=== PATIENT | male | born 1955 | race Caucasian/White ===

== ENCOUNTER 2017-09-22 09:45 | Emergency (ER) | payer BC ==
[2017-09-22 09:54] VITALS: BP 138/97
--- NOTE | 2017-09-22 10:34 | UC ---
Complaint Male HPI - HPI Summary HPI Summary: 62 y/o male presents to the urgent care c/o a rash in his testicles started on 05/2017 that itches a lot. Pt states rash comes and goes , but has worsen in the past week. Pt denies pain, fever, urinary symptoms, Hx STD's, lower back pain, numbness or tingling, penile discharge. - History of Current Complaint Chief Complaint: UCSkin Stated Complaint: RASH Time Seen by Provider: 09/22/17 10:30 Hx Obtained From: Patient Onset/Duration: Gradual Onset, Still Present, Other - lasting months since 2016 Timing: Constant Severity Initially: Mild Severity Currently: Moderate Pain Intensity: 0 Pain Scale Used: 0-10 Numeric Location: Testicle - B/L testicles Aggravating Factor(s): Other - touch Alleviating Factor(s): Nothing Associated Signs And Symptoms: Positive: Negative. Negative: Back Pain, Fever, Penile Swelling, Penile Discharge - Risk Factors Testicular Torsion: Negative - Allergies/Home Medications Allergies/Adverse Reactions: Allergies Allergy/AdvReac Type Severity Reaction Status Date / Time Penicillins [PCN] Allergy Diarrhea Verified 09/22/17 09:54 PMH/Surg Hx/FS Hx/Imm Hx Previously Healthy: Yes Endocrine History: Dyslipidemia Cardiovascular History: Hypertension GI/ History: Gastroesophageal Reflux - Surgical History Surgical History: None - Family History Known Family History: Positive: Cardiac Disease, Hypertension - Social History Occupation: Employed Full-time Lives: With Family Alcohol Use: Weekly Substance Use Type: None Smoking Status (MU): Heavy Every Day Tobacco Smoker Amount Used/How Often: 2 PPD - Immunization History Most Recent Influenza Vaccination: 05/2017 Review of Systems Constitutional: Negative Skin: Other - B/L testiles with itchy red rash Eyes: Negative ENT: Negative Respiratory: Negative Cardiovascular: Negative Gastrointestinal: Negative Genitourinary: Negative Motor: Negative Neurovascular: Negative Musculoskeletal: Negative Neurological: Negative Psychological: Negative Is Patient Immunocompromised?: No All Other Systems Reviewed And Are Negative: Yes Physical Exam Triage Information Reviewed: Yes Vital Signs: Initial Vital Signs Temp 98.3 F 09/22/17 09:50 Pulse 83 09/22/17 09:50 Resp 16 09/22/17 09:50 BP 138/97 09/22/17 09:50 Pulse Ox 98 09/22/17 09:50 - Additional Comments VITAL SIGNS: Reviewed. GENERAL: Patient is a well developed and nourished male who is sitting comfortable in the examining table. Patient is not in any acute respiratory distress. HEAD AND FACE: No signs of trauma. No ecchymosis, hematomas or skull depressions. No sinus tenderness. EYES: PERRLA, EOMI x 2, No injected conjunctiva, clear watery eyes, no nystagmus. No photophobia. EARS: Hearing grossly intact. Ear canals and tympanic membranes are within normal limits. MOUTH: pharynx with no erythema, no exudates,no palatal petechiae. no B/L tonsillar enlargement Uvula in midline. NECK: Supple, trachea is midline, no lymphadenopathy, no JVD, no carotid bruit, no c-spine tenderness, neck with full ROM. CHEST: Symmetric, no tenderness at palpation LUNGS: Clear to auscultation bilaterally. No wheezing or crackles. CVS: Regular rate and rhythm, S1 and S2 present, no murmurs or gallops appreciated. ABDOMEN: Soft, non-tender. No signs of distention. No rebound no guarding, and no masses palpated. Bowel sounds are normal. BACK:no scoliosis or lesions, non tender to palaption, No B/L CVA tenderness EXTREMITIES: FROM in all major joints, no edema, no cyanosis or clubbing. NEURO: Alert and oriented x 3. No acute neurological deficits. Speech is normal and follows commands. SKIN: Dry and warm. Genital:I was assisted by Nurse Frantz. Positive B/L testicles with erythematous patch with satellite lesions, non tender to palpation, signs of scoriation. About 2cm x3 cm in size. Penis WNl no penile discharge or swelling observed, Complaint Male Course/Dx - Course Course Of Treatment: 62 y/o male presents to the urgent care c/o a rash in his testicles started on 05/2017 that itches a lot. Pt states rash comes and goes , but has worsen in the past week. Pt denies pain, fever, urinary symptoms, Hx STD 's, lower back pain, numbness or tingling, penile discharge. Hx obtained. Pt with Positive B/L testicles with erythematous patch with satellite lesions, non tender to palpation, signs of scoriation. About 2cm x3 cm in size. Penis WNL, no penile discharge or swelling observed on examiantion. Most likely Candidal intertrigo. Pt Rx Ketokonazole topical cream and Bendryl PO to alleviate Pruritus. Pt advised to decrease Atorvastatin to 1/2 tab for 1 week since Ketoconazole can interfere with its excretion. Pt understood and agreed. Pt with elevated BP, advised to decrease salt in diet, monitor BP and F/U with his PCP for further management. D/C instruction explained .All questions answers at Pt's satisfaction. Pt understood and agreed with plan of care. - Differential Dx/Diagnosis Differential Diagnosis/HQI/PQRI: Phimosis, Priaprism, Paraphimosis, Prostatitis , Urinary Tract Infection, Other - STD's, mile intertrigo Provider Diagnoses: 1- Candidal intertrigo. 2-Pruritus. 3- Uncontrolled HTN Discharge - Discharge Plan Condition: Stable Disposition: HOME Prescriptions: diPHENhydraMINE PO* [Benadryl PO 25 MG TAB*] 25 mg PO TID PRN #15 tab PRN Reason: pruritus Ketoconazole 2 % CREAM (NF) [Nizoral 2% CREAM (NF)] 1 applic TOPICAL BID #1 tube Patient Education Materials: Low Sodium Diet (ED), Skin Yeast Infection (ED) Referrals: Naida Zacarias DO [Primary Care Provider] - 1 Week Additional Instructions: 1-Please apply topical medication as directed. Keep area dry 2-Take Benadryl as directed to alleviate itchiness. 3-If symptoms do not improve or worsen in 1 week please f/u with your PCP or return to the urgent care for further evaluation and treatment. Skin care Use of topical drying agents after treatment of active infection is important in the prevention of intertrigo, since they reduce moisture and maceration. Patients at risk for recurrence should use a drying agent indefinitely. 4-Your BP is elevated today please decrease salt in your diet and f/u with PCP for further management
== END 2017-09-22 11:04 | disposition home or self-care (01) ==
LOC: UCEAST 09:45
DX: Z72.0 Tobacco use (principal); B37.2 Candidiasis of skin and nail; L29.9 Pruritus, unspecified; I10 Essential (primary) hypertension
CPT/HCPCS: 81003; 99212; G0463

== ENCOUNTER 2017-10-12 07:44 | Emergency (ER) | payer BC ==
[2017-10-12] MEDS ORDERED: hydrOXYzine HCL TAB* 50 MG PO ONE (08:37)
[2017-10-12] MEDS ORDERED: methylPREDNISolone 125 MG* 2 ML VIAL IV ONE (08:38)
[2017-10-12] MEDS ORDERED: Famotidine IV* 10 MG/ML 2 ML (20 mg) IV ONE (08:38)
[2017-10-12] MEDS ORDERED: Ondansetron INJ* 2 MG/ML VIAL IV ONE (08:39)
[2017-10-12] MEDS ORDERED: NS 0.9% 1000 ML* 1,000 ML BOLUS SCH (08:45)
[2017-10-12] MEDS ORDERED: NS 0.9% 1000 ML* 2,000 ML IV ONE (10:27)
[2017-10-12 10:37] LABS: Comments Flag Yes; Hematocrit 59 % (42-52); Hemoglobin 20.4 g/dl (14.0-18.0); Mean Corpuscular HGB Conc 35 g/dl (31-36); Mean Corpuscular Hemoglobin 32 pg (27-31); Mean Corpuscular Volume 94 fL (80-94); Mean Platelet Volume 9 um3 (7.4-10.4); Red Blood Count 6.29 10^6/ul (4.0-5.4); Red Cell Distribution Width 14 % (10.5-15)
[2017-10-12 10:38] LABS: Add Diff/Slide Review? Slide Review Added
[2017-10-12 10:54] LABS: ALT 19 U/L (7-52); Albumin 3.9 g/dL (3.2-5.2); Alkaline Phosphatase 77 U/L (34-104); BUN/Creatinine Ratio 10.9 (8-20); Blood Urea Nitrogen 34 mg/dL (6-24); CO2 Carbon Dioxide 20 mmol/L (22-32); Calcium 9.6 mg/dL (8.6-10.3); Chloride 98 mmol/L (101-111); Creatine Kinase 110 U/L (10-223); EGFR African American 26.2 (>60); EGFR Non-African American 20.4 (>60); Globulin 3.1 g/dL (2-4); Glucose 134 mg/dL (70-100); Sodium 131 mmol/L (133-145)
[2017-10-12 10:56] LABS: Troponin I 0.03 ng/mL (<0.04)
--- NOTE | 2017-10-12 10:57 | RAD ---
HISTORY: Anaphylaxis COMPARISONS: None VIEWS: 1: frontal portable view of the chest at 10:35 AM FINDINGS: LINES AND TUBES: None. CARDIOMEDIASTINAL SILHOUETTE: The cardiomediastinal silhouette is normal for portable technique. PLEURA: The costophrenic angles are sharp. No pleural abnormalities are noted. LUNG PARENCHYMA: The lungs are clear. ABDOMEN: The upper abdomen is clear. There is no subphrenic gas. BONES AND SOFT TISSUES: No bone or soft tissue abnormalities are noted. IMPRESSION: NO ACTIVE CARDIOPULMONARY DISEASE.
[2017-10-12 12:30] LABS: Anion Gap 13 mmol/L (2-11)
[2017-10-12 13:52] VITALS: BP 111/59
[2017-10-12 16:45] LABS: Alcohol < 10 mg/dL (<10)
--- NOTE | 2017-10-12 20:23 | ED ---
Cory Castaneda Gabriel, scribed for Ana Daley MD on 10/12/17 at 0829 . Allergic Reaction/Systemic - HPI Summary HPI Summary: This patient is a 62 year old M presenting [place] [facility] [place] by with a chief complaint of rash on extremities since yesterday morning. The patient rates the pain 2/10 in severity. Patient reports swollen lips, vomiting, and itching, Patient denies chest pain,SOB, fever, and ABD pain. Patient was given a cream for "jock itch" last week and told to take Benadryl, he believes he is reacting to this treatment. Patient takes llisinopril for HTN but has not taken it this morning. He was seen at two weeks ago (records show 09/22/17) for the rash on his groin and he doesn't believe the cream is working. Pt was given ketoconazole cream per records. Patient is unable to eat or drink without vomiting. - History of Current Complaint Chief Complaint: EDAllergicReaction Time Seen by Provider: 10/12/17 08:01 Hx Obtained From: Patient, Medical Records Onset/Duration: Started days ago - 2, Still Present Timing: Constant Severity Initially: Mild Severity Currently: Mild Pain Intensity: 2 Pain Scale Used: 0-10 Numeric Location: Diffuse Character: Pruritus Aggravating Factor(s): Nothing Alleviating Factor(s): Nothing Associated Signs And Symptoms: Positive: Negative - denies chest pain, SOB, fever, and ABD pain., Rash, Other: - swollen lips, vomiting, and itching - Related Hx Possible Reaction To: Medications - ketoconazole, benadryl, lisinopril - Allergies/Home Medications Allergies/Adverse Reactions: Allergies Allergy/AdvReac Type Severity Reaction Status Date / Time Penicillins [PCN] Allergy Diarrhea Verified 09/22/17 09:54 PMH/Surg Hx/FS Hx/Imm Hx Previously Healthy: No Endocrine/Hematology History: Denies: Hx Diabetes Cardiovascular History: Reports: Hx Hypercholesterolemia, Hx Hypertension, Hx Valvular Heart Disease - mitral valve prolapse Denies: Hx Angina, Hx Coronary Artery Disease, Hx Myocardial Infarction Respiratory History: Denies: Hx Asthma, Hx Chronic Obstructive Pulmonary Disease (COPD) Neurological History: Denies: Hx CVA - Surgical History Surgery Procedure, Year, and Place: no surg hx Infectious Disease History: No Infectious Disease History: Denies: History Other Infectious Disease, Traveled Outside the [place] in Last 30 Days - Family History Known Family History: Positive: Cardiac Disease, Hypertension - Social History Lives: With Family Alcohol Use: Weekly Substance Use Type: Reports: None Smoking Status (MU): Heavy Every Day Tobacco Smoker Amount Used/How Often: 2 PPD Review of Systems Negative: Fever Positive: Other - lips are swollen Negative: Shortness Of Breath Positive: Vomiting. Negative: Abdominal Pain Positive: Rash - that itches Neurological: Negative Psychological: Normal All Other Systems Reviewed And Are Negative: Yes Physical Exam - Summary Physical Exam Summary: Appearance: Ill-appearing, no pain distress, Well-nourished Skin: Warm, color reflects adequate perfusion, there is a total body macular papular erythematous rash including face, trunk, abdomen and bilateral lower extremities Head: Normal Head/Face Eyes: Conjunctiva clear ENT: Normal appearance Neck: Supple Respiratory: Lungs clear, Normal breath sounds, no respiratory distress Cardio: RRR, No murmur, pulses normal, brisk capillary refill Abdomen: soft, nontender, no masses Bowel sounds: present Musculoskeletal: Strength Intact/ ROM intact Neuro Exam: A&Ox3, CN II-XII intact, Motor function 5/5, Sensations intact, Gait WNL Psychological: Normal Triage Information Reviewed: Yes Vital Signs On Initial Exam: Initial Vitals Temp Pulse Resp BP Pulse Ox 97.0 F 107 19 93/69 98 10/12/17 07:49 10/12/17 07:49 10/12/17 07:49 10/12/17 07:49 10/12/17 07:49 Vital Signs Reviewed: Yes - Castor Coma Scale Coma Scale Total: 15 Diagnostics - Vital Signs Vital Signs Temp Pulse Resp BP Pulse Ox 10/12/17 08:00 104 96 10/12/17 07:52 100 93/69 98 10/12/17 07:51 106 98 10/12/17 07:49 97.0 F 107 19 93/69 98 - Laboratory Lab Results: Lab Results 10/12/17 10/12/17 10/12/17 Range/Units 08:55 08:55 08:55 WBC 11.0 H (3.5-10.8) 10^3/ul RBC 6.29 H (4.0-5.4) 10^6/ul Hgb 20.4 H (14.0-18.0) g/dl Hct 59 H (42-52) % MCV 94 (80-94) fL MCH 32 H (27-31) pg MCHC 35 (31-36) g/dl RDW 14 (10.5-15) % Plt Count 282 (150-450) 10^3/ul MPV 9 (7.4-10.4) um3 Neut % (Auto) 75.7 (38-83) % Lymph % (Auto) 18.9 L (25-47) % Harding % (Auto) 5.2 (1-9) % Eos % (Auto) 0.1 (0-6) % Baso % (Auto) 0.1 (0-2) % Absolute Neuts (auto) 8.3 H (1.5-7.7) 10^3/ul Absolute Lymphs (auto) 2.1 (1.0-4.8) 10^3/ul Absolute Monos (auto) 0.6 (0-0.8) 10^3/ul Absolute Eos (auto) 0 (0-0.6) 10^3/ul Absolute Basos (auto) 0 (0-0.2) 10^3/ul Absolute Nucleated RBC 0.01 10^3/ul Nucleated RBC % 0.1 INR (Anticoag Therapy) (0.77-1.02) APTT (26.0-36.3) seconds D-Dimer, Quantitative (Less Than 230) ng/mL Sodium 131 L (133-145) mmol/L Potassium TNP Chloride 98 L (101-111) mmol/L Carbon Dioxide 20 L (22-32) mmol/L Anion Gap 13 H (2-11) mmol/L BUN 34 H (6-24) mg/dL Creatinine 3.11 H (0.67-1.17) mg/dL Est GFR ( Amer) 26.2 (>60) Est GFR (Non-Af Amer) 20.4 (>60) BUN/Creatinine Ratio 10.9 (8-20) Glucose 134 H (70-100) mg/dL Lactic Acid (0.5-2.0) mmol/L Calcium 9.6 (8.6-10.3) mg/dL Magnesium TNP Total Bilirubin 1.00 (0.2-1.0) mg/dL AST TNP ALT 19 (7-52) U/L Alkaline Phosphatase 77 (34-104) U/L Total Creatine Kinase 110 (10-223) U/L CK-MB (CK-2) 1.9 (0.6-6.3) ng/mL Troponin I 0.03 (<0.04) ng/mL B-Natriuretic Peptide 24 ( - 100) pg/mL Total Protein 7.0 (6.4-8.9) g/dL Albumin 3.9 (3.2-5.2) g/dL Globulin 3.1 (2-4) g/dL Albumin/Globulin Ratio 1.3 (1-3) TSH 2.90 (0.34-5.60) mcIU/mL Serum Alcohol < 10 (<10) mg/dL 10/12/17 10/12/17 Range/Units 08:55 10:45 WBC (3.5-10.8) 10^3/ul RBC (4.0-5.4) 10^6/ul Hgb (14.0-18.0) g/dl Hct (42-52) % MCV (80-94) fL MCH (27-31) pg MCHC (31-36) g/dl RDW (10.5-15) % Plt Count (150-450) 10^3/ul MPV (7.4-10.4) um3 Neut % (Auto) (38-83) % Lymph % (Auto) (25-47) % Harding % (Auto) (1-9) % Eos % (Auto) (0-6) % Baso % (Auto) (0-2) % Absolute Neuts (auto) (1.5-7.7) 10^3/ul Absolute Lymphs (auto) (1.0-4.8) 10^3/ul Absolute Monos (auto) (0-0.8) 10^3/ul Absolute Eos (auto) (0-0.6) 10^3/ul Absolute Basos (auto) (0-0.2) 10^3/ul Absolute Nucleated RBC 10^3/ul Nucleated RBC % INR (Anticoag Therapy) 0.94 (0.77-1.02) APTT 27.6 (26.0-36.3) seconds D-Dimer, Quantitative > 1050 H (Less Than 230) ng/mL Sodium (133-145) mmol/L Potassium Chloride (101-111) mmol/L Carbon Dioxide (22-32) mmol/L Anion Gap (2-11) mmol/L BUN (6-24) mg/dL Creatinine (0.67-1.17) mg/dL Est GFR ( Amer) (>60) Est GFR (Non-Af Amer) (>60) BUN/Creatinine Ratio (8-20) Glucose (70-100) mg/dL Lactic Acid 1.5 (0.5-2.0) mmol/L Calcium (8.6-10.3) mg/dL Magnesium Total Bilirubin (0.2-1.0) mg/dL AST ALT (7-52) U/L Alkaline Phosphatase (34-104) U/L Total Creatine Kinase (10-223) U/L CK-MB (CK-2) (0.6-6.3) ng/mL Troponin I (<0.04) ng/mL B-Natriuretic Peptide ( - 100) pg/mL Total Protein (6.4-8.9) g/dL Albumin (3.2-5.2) g/dL Globulin (2-4) g/dL Albumin/Globulin Ratio (1-3) TSH (0.34-5.60) mcIU/mL Serum Alcohol (<10) mg/dL Result Diagrams: 10/12/17 08:55 10/12/17 08:55 Lab Statement: Any lab studies that have been ordered have been reviewed, and results considered in the medical decision making process. - Radiology CXR Radiology Interpretation Completed By: Radiologist - NO ACTIVE CARDIOPULMONARY DISEASE. ED physician has reviewed this radiology report. - EKG 1047 Cardiac Rate: NL EKG Rhythm: Sinus Rhythm - at 81 BPM EKG Interpretation: normal AV/IV CT ,NAC EKG Comparison: No Significant Change - in comparison to EKG from 08/27/16 Re-Evaluation - Re-Evaluation First Eval Re-Evaluation Time: 13:17 Change: Improved Comment: Patient has less redness and itching after treatment and is ready to go home. Allergic Reaction Course/Dx - Course Assessment/Plan: An EKG reveals NSR. CXR reveals, per radiologist, NO ACTIVE CARDIOPULMONARY DISEASE. Test show elevated Hb/HCT, elevated d-dimer. Pt is a smoker and may be slightly dehydrated, which may account for the elevated H/H. Mild dehydration may also account for pt's hypotension that improved with fluids. Pt's elevated d-dimer may be the inflammation associated with the rash. Pt has no CP, SOB or calf pain to suggest DVT of PE. In the ED course the patient was given IV fluids, Pepcid, Atarax, Zofran, and solu-medrol. Patient will be discharged with prescription for Famotidine, triamcinolone, hydroxyzine, and prednisone and follow up from Dr. Zacarias. The patient is agreeable with this plan. - Diagnoses Provider Diagnoses: GENERALIZED ALLERGIC REACTION Discharge - Discharge Plan Condition: Stable Disposition: HOME Prescriptions: Famotidine TAB* [Pepcid 20 MG TAB*] 40 mg PO DAILY #5 tab hydrOXYzine HCL TAB* [Atarax 25 MG TAB*] 25 mg PO TID PRN #15 tab PRN Reason: Itching predniSONE TAB* [Deltasone TAB*] 40 mg PO DAILY #10 tab Triamcinolone 0.1% CREAM (NF) [Kenalog 0.1% Cream (NF)] 1 applic .SEE ORDER TID #30 gm Patient Education Materials: General Allergic Reaction (ED) Referrals: Naida Zacarias DO [Primary Care Provider] - Additional Instructions: Dr. Daley recommends that you may benefit from seeing an work station support specialist. Your blood pressure was low today so do not take your lisinopril today. Continue to take the atarax, famotidine and prednisone as directed. These meds were given in the ER today. You may continue with the cream you have prescribed and we have also prescribed a low potency steroid cream that you may try in this area also. Your hemoglobin and hematocrit were very high today. This can be from smoking. You should try to stop smoking. Return to the ER if you have new or worsening symptoms. The documentation as recorded by the Cory brooke Gabriel accurately reflects the service I personally performed and the decisions made by , Ana Daley MD.
--- OUTSIDE RECORDS SUMMARY | 2017-10-13 11:38 | XMS REPORT ---
:1955 External Reference #:[id number] Author Organization [facility] Address [address] [place] [address] Phone [phone] Care Team Providers Name Role Phone Carlos Mata M.D. 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 Active Onset: 09/29/2017 Nuclear senile cataract Carlos Mata M.D. Active Family History Date Family Member(s) Problem(s) Comments Father No Current Problems Mother No Current Problems Social History Type Date Description Comments Marital Status Legal Status: Occupation [employer] Work Status Retired ETOH Use Occasionally consumes alcohol Smoking Heavy tobacco smoker (more than 10 cigarettes/day) Recreational Drug Use Denies Drug Use Daily Caffeine Consumes on average 2 cups of regular coffee per day Allergies, Adverse Reactions, Alerts Date Description Reaction Status Severity Comments 09/29/2017 Penicillin active Medications Medication Date Status Form Strength Qnty SIG Indications Ordering Provider Atorvastatin Active Tablets 80mg Unknown Calcium 0 Lisinopril Active Tablets 40mg Unknown 0 Results Description No Information Procedures Description No Information Plan of Care 09/29/2017 - Carlos Mata M.D.H25.13 Age-related nuclear cataract, bilateralComments:Smoking can increase the risk of developing or worsening any eye related disease, as well as affect your overall health. If you are a smoker , we strongly recommend that you quit.If you are not a smoker, we strongly recommend that you do not start. You have been diagnosed with cataracts. If you are happy with your vision as it is now, then we will see you at your next scheduled appointment. If you feel like your vision is getting worse before your scheduled appointment, please call Briana or Sheeba [phone].Follow up:1 Year Follow Up DFE, OCT NERVE, MR CHECK You can expect to have your eyes dilated at your next visit. If Dr. Mata orders any additional testing, it may require extra time. We recommend that you bring sunglasses, as dilation drops often make you light sensitive until they wear off. We always recommend you bring someone to drive you home if you are uncomfortable driving with your eyes dilated. Ifyou have any questions before your next visit, feel free to call our office at .H40.013 Open angle with borderline findings, low risk, bilateralComments:Dr. Mata is considering you a Glaucoma suspect. This means the eye pressure in your eyes are higher than average, your optic nerve appearance is suspicious, or you have strong risk factors; but you have not been diagnosed with Glaucoma. Follow up appointments are very important to keep.H52.13 Myopia, bilateralComments:You have Myopia, or near sightedness. I have given you a prescription for glasses.
== END 2017-10-12 13:51 | disposition home or self-care (01) ==
LOC: ED 07:44
DX: T78.40XA Allergy, unspecified, initial encounter (principal); X58.XXXA Exposure to other specified factors, initial encounter; F17.200 Nicotine dependence, unspecified, uncomplicated; Z88.0 Allergy status to penicillin
CPT/HCPCS: 36415; 71010; 80053; 80320; 82550; 82553; 83605; 83880; 84443; 84484; 85025; 85379; 85610; 85730; 87040; 93005; 96361; 96374; 96375; 99284; A9270-GY; G0480; J2405; J2930

== ENCOUNTER 2019-12-15 08:03 | Day surgery (SDC) | payer MEDICARE ==
[~2019-12-15 08:03] MED LIST: Acetaminophen TAB* 325 MG PO PRN; Buffered Lidocaine 1% SYRIN* 1 ML/SYRINGE INTRADERM ONE
[2019-12-15] MEDS ORDERED: Povidone Iodine 5% OPTH* 30 ML BTL ONE (09:19)
[2019-12-15] MEDS ORDERED: Ketorolac 0.5% OPHTH (NF) 0.5 % 5 ML BTL ONE (09:19)
[2019-12-15] MEDS ORDERED: Cyclopentolate 1% OPTH.SOL* 2 ML BTL ONE (09:19)
[2019-12-15] MEDS ORDERED: Phenylephrine OPHTH SOL 2.5%* 2 ML ONE (09:19)
[2019-12-15] MEDS ORDERED: Lidocaine 1% MPF ** 5 ML VIAL ONE (09:19)
[2019-12-15] MEDS ORDERED: Proparacaine 0.5% OPHTH.SOL* 15 ML BTL ONE (09:19)
[2019-12-15] MEDS ORDERED: Lidocaine 2% w/ EPI 1:200,000* 20 ML SDV VIAL ONE (09:19)
[2019-12-15] MEDS ORDERED: Neomycin/Polymy/Dex OPTH.SUSP* MAXITROL 0.1% 5 ML ONE (09:19)
[2019-12-15] MEDS ORDERED: acetaZOLAMIDE TAB* 250 MG ONE (09:19)
[2019-12-15] MEDS ORDERED: Midazolam* 1 MG/ML 2 ML VIAL (2 MG) ONE ×3 (10:15→10:29)
[2019-12-15 12:53] VITALS: BP 111/77
--- NOTE | 2019-12-15 13:46 | OP ---
DATE OF OPERATION: 12/15/19 - [facility] DATE OF : 53 SURGEON: Dawood Eddy M.D. PREOPERATIVE DIAGNOSIS: Cataract, right eye. POSTOPERATIVE DIAGNOSIS: Cataract, right eye. OPERATIVE PROCEDURE: Extracapsular cataract extraction with intraocular lens implant, right eye. DESCRIPTION OF PROCEDURE: The patient was brought to the operating room after being given 1/2% Alcaine with epinephrine drops in the preoperative area. The eye was prepped and draped in the usual sterile fashion. Sterile drape and eyelid speculum were placed. Again, topical 1/2% Alcaine with epinephrine was given. A paracentesis incision was made at the 9 o'clock position with the No.75 blade. Clear cornea incision 2.2 x 2.2-mm was created at the 12 o'clock position starting at the anterior limbus using the 2.2-mm keratome. The anterior chamber was irrigated with 0.4 mL of 1% non-preservative intracameral lidocaine and filled with DisCoVisc. A capsulorrhexis was completed using the cystotome and the Utrata forceps. Hydrodissection was performed with balanced salt solution. The lens nucleus was removed with the Phacoemulsification handpiece without incident. Cortex was removed with the irrigation-aspiration handpiece. The capsular bag was re-inflated using DisCoVisc and an [id number] 27.5 implant was inserted with the shooter. A Malyugin ring was used to dilate the pupil prior to capsulorrhexis because the pupil was only about 3 mm. This was removed after insertion of the lens. Indication for complex cataract surgery , pupil abnormalities requiring pupil dilation device. The irrigation- aspiration handpiece was used to remove all residual DisCoVisc. The eye was refilled with balanced salt solution and the wound checked and found to be watertight. Topical Maxitrol drops were given. [id number]/[facility] #: [id number] MTDD
== END 2019-12-15 10:58 | disposition home or self-care (01) ==
LOC: OREAST 08:03
PROVIDERS: ATTEND Specialist
DX: H25.811 Combined forms of age-related cataract, right eye (principal); H21.561 Pupillary abnormality, right eye; I10 Essential (primary) hypertension; E78.00 Pure hypercholesterolemia, unspecified; F17.210 Nicotine dependence, cigarettes, uncomplicated; F32.9 Major depressive disorder, single episode, unspecified
CPT/HCPCS: A9270-GY; J2250; V2632

== ENCOUNTER 2019-12-22 09:10 | Day surgery (SDC) | payer MEDICARE ==
[2019-12-22] MEDS ORDERED: Cyclopentolate 1% OPTH.SOL* 2 ML BTL ONE (09:24)
[2019-12-22] MEDS ORDERED: Lidocaine 1% MPF ** 5 ML VIAL ONE (09:24)
[2019-12-22] MEDS ORDERED: Proparacaine 0.5% OPHTH.SOL* 15 ML BTL ONE (09:24)
[2019-12-22] MEDS ORDERED: acetaZOLAMIDE TAB* 250 MG ONE (09:24)
[2019-12-22] MEDS ORDERED: Povidone Iodine 5% OPTH* 30 ML BTL ONE (09:24)
[2019-12-22] MEDS ORDERED: Ketorolac 0.5% OPHTH (NF) 0.5 % 5 ML BTL ONE (09:24)
[2019-12-22] MEDS ORDERED: Neomycin/Polymy/Dex OPTH.SUSP* MAXITROL 0.1% 5 ML ONE (09:24)
[2019-12-22] MEDS ORDERED: Lidocaine 2% w/ EPI 1:200,000* 20 ML SDV VIAL ONE (09:24)
[2019-12-22] MEDS ORDERED: Phenylephrine OPHTH SOL 2.5%* 2 ML ONE (09:24)
[2019-12-22] MEDS ORDERED: Midazolam* 1 MG/ML 5 ML VIAL (5 MG) ONE (11:19)
[2019-12-22] MEDS ORDERED: Midazolam* 1 MG/ML 2 ML VIAL (2 MG) ONE (11:44)
[2019-12-22] MEDS ORDERED: Labetalol IV* 5 MG/ML 20 ML VIAL ONE (11:48)
--- NOTE | 2019-12-22 14:34 | OP ---
DATE OF OPERATION: 12/22/2019 - [facility] DATE OF : 1955. SURGEON: Dawood Eddy M.D. PREOPERATIVE DIAGNOSIS: Cataract left eye. POSTOPERATIVE DIAGNOSIS: Cataract left eye. OPERATIVE PROCEDURE: Extracapsular cataract extraction with intraocular lens implant left eye. DESCRIPTION OF PROCEDURE: The patient was brought to the operating room after being given 1/2% Alcaine with epinephrine drops in the preoperative area. The eye was prepped and draped in the usual sterile fashion. Sterile drape and eyelid speculum were placed. Again, topical 1/2% Alcaine with epinephrine was given. A paracentesis incision was made at the 3 o'clock position with the No.75 blade. Clear cornea incision 2.2 x 2.2-mm was created at the 6 o'clock position starting at the anterior limbus using the 2.2-mm keratome. The anterior chamber was irrigated with 0.4 mL of 1% non-preservative intracameral lidocaine and filled with DisCoVisc. A capsulorrhexis was completed using the cystotome and the Utrata forceps. Hydrodissection was performed with balanced salt solution. The lens nucleus was removed with the Phacoemulsification handpiece without incident. Cortex was removed with the irrigation-aspiration handpiece. The capsular bag was re-inflated using DisCoVisc and an [id number] implant was inserted with the shooter. The pupil was very small. A Malyugin ring was used to dilated the pupil prior to capsulorrhexis and removed after insertion of the lens. The irrigation-aspiration handpiece was used to remove all residual DisCoVisc. The eye was refilled with balanced salt solution and the wound checked and found to be watertight. Topical Maxitrol drops were given. [id number]/[facility] #: [id number] [facility]
[2019-12-22 15:16] VITALS: BP 104/78
== END 2019-12-22 12:28 | disposition home or self-care (01) ==
LOC: OREAST 09:10
PROVIDERS: ATTEND Specialist
DX: H25.812 Combined forms of age-related cataract, left eye (principal); I10 Essential (primary) hypertension; E78.00 Pure hypercholesterolemia, unspecified; F17.210 Nicotine dependence, cigarettes, uncomplicated; Z88.0 Allergy status to penicillin; I34.1 Nonrheumatic mitral (valve) prolapse
CPT/HCPCS: A9270-GY; J2250; V2632